=== PATIENT | female | born 1975 | race Caucasian/White ===

== ENCOUNTER 2024-02-10 10:52 | Outpatient (AMB) | payer OTHER, SELFPAY ==
[2024-02-10 11:25] VITALS: BP 138/82; PULSE 81; O2SAT 99; BMI 28.8
--- NOTE | 2024-02-10 11:25 | A.OFFPC_ITS ---
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: No Allergies No Known Allergies Allergy (Verified 02/10/24 11:26) Medication List - Last Reconciled 02/10/24 by Ely De La Fuente, SENIOR LINUX UNIX ADMINISTRATOR-BC cetirizine (Zyrtec) 10 mg PO DAILY PRN norethin-e.estradiol triphasic 0.5/0.75/1 mg- 35 mcg (Nortrel (28)) 1 tab PO DAILY omeprazole 20 mg PO DAILY Dental Screening Dental Screen Date: 02/10/24 Did you have a dental visit in the last 12 months?: Yes Did you have a dental problem in the last 6 months where you did not have access to dental care?: No Was dental information given to patient?: Patient has dentist HPI HPI Comments History of Present Illness Details History of Present Illness The patient is a 48-year-old female presenting today to [facility], no previous medical records available. She has chronic low back pain. She reports localized pain in the lower right quadrant of her back, which is not excruciating but occasionally necessitates the use of ibuprofen. 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 Physical therapy and stretching exercises have provided insufficient relief. An MRI is scheduled for further evaluation, managed by [facility]. The patient also has a history of gastrointestinal issues, leading to an en doscopy and colonoscopy which revealed polyps and necessitated ongoing antacid therapy. She reports adherence to Omeprazole for reflux symptoms. Imaging done at [facility] Johnny Santiago. Seasonal allergic rhinitis is managed with a generic form of Zyrtec and occasional nasal congestion symptoms which are managed with these medications. Additional history includes a past ACL and meniscus surgery on the right knee in 2014, with no reported complications since the surgery. During her , she experienced elevated blood pressure and anticipates the possibility of developing hypertension in the future. She is currently on oral contraceptive therapy with Nortel 777 to manage light menstrual bleeding. She inquired about routine health maintenance testing, noting that her last comprehensive blood work was conducted a significant time ago. She is due for Flu shot. Social History - Employed as a delinquent tax collection assistant, involv ing labor-intensive tasks such as lifting and twisting - Denies smoking - Engages in routine calorie counting an d weight management efforts - Does not consume a restricted diet and is attempting to lose weight - Receives medications via preferred pha rmacy, [facility] in [place] Review of Systems - Respiratory: Denies dyspnea or wheezin g - Cardiovascular: Denies palpitations or chest pain - Gastrointestinal: Reports mild seasona l allergic symptoms - Musculoskeletal: Reports ongoing low b ack pain Physical Exam - Vital Signs- Blood pressure 138/82 mmH g, Oxygenation saturation 99%, Pulse 81 bpm Awake, alert NAD PERRLA LS CTAB RRR Mood and affect appropriate Plan - Chronic Low Back Pain: Await results o f MRI scheduled for evaluation of back pain; continue current physical therapy and stretching regimen, avoid exacerbating activities, and use ibuprofen as needed for pain management. FF'd by GARFIELD. - Gastroesophageal Reflux Disease: Luz nue Omeprazole for symptom management. - Seasonal Allergic Rhinitis: Continue u se of generic Zyrtec as needed for symptom management. - Health Maintenance: Routine blood work including screening for cholesterol and thyroid function to be conducted, referral placed for OBGYN consultation for routine women's health care, ensure follow-up for colonoscopy as previously advised due to polyp history. - Potential Hypertension: Routine blood pressure monitoring advised, and lifestyle modifications recommended to reduce potential risk factors for hypertension. - Preventive Care: Administer influenza vaccine during the visit. Patient was informed and verbally consented to the use of an ambient scribe for clinic note documentation during this visit. Discussion Notes I discussed with the patient the management of her chronic low back pain, emphasizing the role of physical therapy and the upcoming MRI for further evaluation. We reviewed the importance of continuing current medication for her gastroesophageal reflux disease and allergy management. I placed an emphasis on blood pressure monitoring given her history of elevated values during and recommended lifestyle modifications as preventive measures. Furthermore, I referred her to an OBGYN for routine women's health care and advised her on obtaining her colonoscopy/EGD records. I also highlighted the benefits of receiving the influenza vaccine and informed her of the availability of routine lab tests for health maintenance. Patient Instructions - Attend scheduled MRI for back pain leonid rogers. - Continue physical therapy and stretchi ng exercises for back pain. - Continue Omeprazole and Zyrtec as pres cribed. - Monitor blood pressure at home, and sc hedule regular check-ups. - Receive flu vaccination during the jovana ointment. - Obtain colonoscopy and endoscopy recor ds from Johnny Monreal for continuity of care. - Utilize patient portal for appointment s and results. - Schedule OBGYN appointment for routine care with a female provider, as preferred. - Schedule routine blood work at the lab for health maintenance. - Report any significant changes in symp toms or new health concerns promptly. RTO Mar/Apr for CPE, sooner PRN Total time spent caring for the patient today was 30 minutes. This includes time spent before the visit reviewing the chart, time spent during the visit, and time spent after the visit on documentation [facility] Medical History History of induced hypertension Surgical History History of surgical removal of meniscus of knee S/P ACL surgery Social History Housing: House Patient Tobacco Use Status: Never used Tobacco e-Cigarette/Vaping Use: Never Used service: No Current occupational status: employed Cognitive needs: No Hearing needs: No Vision needs: No Questionnaire PHQ-9 Over the last 2 weeks, how often have you been bothered by any of the following problems? 1. Little interest or pleasure in doing things: not at all 2. Feeling down, depressed, or hopeless: not at all 3. Trouble falling or staying asleep, or sleeping too much: not at all 4. Feeling tired or having little energy: not at all 5. Poor appetite or overeating: not at all 6. Feeling bad about yourself - or that you are a failure or have let yourself or your family down: not at all 7. Trouble concentrating on things, such as reading the newspaper or watching television: not at all 8. Moving or speaking so slowly that other people could have noticed. Or the opposite - being so fidgety or restless that you have been moving around a lot more than usual: not at all 9. Thoughts that you would be better off or of hurting yourself in some way: not at all Total score: 0 Depression Screening Interpretation: Negative Depression Screening Done: Yes 26208 - PHQ-9 Billing: Yes Source: Developed by Drs. Robbin Salcedo, Cari Granados, Elpidio Jay and colleagues, with an educational efra from [employer]. Thrive Questionnaire Date Thrive assessed: 02/10/24 I am a: Patient What is your living situation today?: I have a steady place to live Within the past 12 months, did the food you bought not last and you didn't have the money to get more?: Never true Within the past 12 months, did you worry whether your food would run out before you got money to buy more?: Never true Do you have trouble paying for medicines?: No Do you have trouble getting transportation to medical appointments?: No Do you have trouble paying your heating and electricity bill?: No Do you have trouble taking care of your child, family member or friend?: No Do you have trouble with day-to-day activities such as bathing, preparing meals, shopping, managing finances, etc.?: No Are you currently unemployed and looking for a job?: No Are you interested in more education?: No Please select the resources that you would like help with: None Currently or been in a relationship where the following occur: No concerns reported THRIVE Score: 0 AUDIT C Alcohol Use Questionnaire (AUDIT-C) 1. How often do you have a drink containing alcohol?: Monthly or less 2. How many drinks containing alcohol do you have on a typical day when you are drinking?: 1 or 2 3. How often do you have six or more drinks on one occasion?: Never Total Score: 1 Score Reviewed/Action Taken: Yes TRICIA-7 AMB Questionnaire TRICIA-7 Date TRICIA - 7 assessed: 02/10/24 Feeling nervous, anxious, or on edge: 0 = Not at all Not being able to stop or control worryin = Not at all Worrying too much about different things: 0 = Not at all Trouble relaxin = Not at all Being so restless that it is hard to sit still: 0 = Not at all Becoming easily annoyed or irritable: 0 = Not at all Feeling afraid as if something awful might happen: 0 = Not at all Total TRICIA-7 score (0-4 normal; 5-9 mild; 10-14 moderate; 15-21 severe): 0 Source: Developed by Drs. Robbin Salcedo, Cari Granados, Elpidio Jay and colleagues, with an educational efra from [employer]. TRICIA-7 Assessment Billing TRICIA-7 Assessment Tool: TRICIA-7 Assessment 86050 Physical exam (Primary Care) Vital Signs: Last Vital Signs Pulse 81 02/10/24 11:25 BP 138/82 02/10/24 11:25 Pulse Ox 99 02/10/24 11:25 Oxygen Delivery Method Room Air 02/10/24 11:25 BMI result Body Mass Index 28.8 Tobacco/Smoking Status: Tobacco use Status Patient Tobacco Use Status Never used Tobacco 02/10/24 11:32 e-Cigarette/Vaping Use Never Used 02/10/24 11:32 PHQ-9: PHQ-9 Score PHQ-9: Total score 0 02/10/24 11:59 Depression Screening Interpretation: Negative Thrive Assessment: Date of Thrive Assessment Date Thrive assessed 02/10/24 02/10/24 11:32 Currently or been in a relationship where the following occur: No concerns reported Office Procedures Flu Questionnaire Does the patient have a severe egg allergy?: No Does the patient have severe life threatening allergies?: No Does the patient have a fever or illness today?: No Has the patient ever had Guillain-Effingham Syndrome?: No Has the patient ever had any past reaction to a flu shot?: No Immunizations Fluarix Triv [id number] (PF) 45 mcg (15 mcg x 3)/0.5 mL IM syringe Performing [facility] Performing Location: [facility] Family Medicine Administered by: Cathy Whittaker RN on 02/10/24 11:56 Dose Route Admin Location Dispensed Lot Number Expiration Date [facility] [employer] Consultant 0.5 mL IM Left Deltoid 0.5 mL [id number] 09/19/24 [id number] Hi[employer]version VIS Given Date VIS Provided VIS Publication Date 02/10/24 Single Vaccine 20 Eligibility Eligibility Date Funding Source Not [facility] Eligible 02/10/24 Private Coding Level of Care Code New Pt Level 3 (54614) Complex EM visit Add On G2211 Diagnoses Encounter to establish care Z76.89 Laboratory exam ordered as part of routine general medical examination Z00.00 GERD without esophagitis K21.9 Influenza vaccination administered at current visit Z23 Seasonal allergies J30.2 Low back pain radiating to left lower extremity M54.50; M79.605 Additional Codes TRICIA-7 Assessment Billing - TRICIA-7 Assessment Tool: TRICIA-7 Assessment 52704 ([id number]) PHQ-9 - 83734 - PHQ-9 Billing: Yes ([id number]) Assessment & Plan Assessment & Plan (1) Encounter to establish care: Code(s): Z76.89 - Persons encountering health services in other specified circumstances (2) Laboratory exam ordered as part of routine general medical examination: Code(s): Z00.00 - Encounter for general adult medical examination without abnormal findings Category: Medical (3) GERD without esophagitis: Code(s): K21.9 - Gastro-esophageal reflux disease without esophagitis Category: Medical (4) Influenza vaccination administered at current visit: Code(s): Z23 - Encounter for immunization Category: Medical (5) Seasonal allergies: Code(s): J30.2 - Other seasonal allergic rhinitis Category: Medical (6) Low back pain radiating to left lower extremity: Code(s): M54.50 - Low back pain, unspecified; M79.605 - Pain in left leg Category: Medical Plan . Orders: Orders Microalbumin, Random (w Creat) Today Z00.00 - Encounter for general adult m edical examination without abnormal findings Vitamin D 25-OH Total Today Z00.00 - Encounter for general adult medical examination without abnormal findings Influenza 4595-6900 Immunization Today Z23 - Encounter for immunization Comprehensive Met. Panel Today Z00.00 - Encounter for general adult medical examination without abnormal findings Hemoglobin A1c Today Z00.00 - Encounter for general adult medical examination without abnormal findings Lipid Panel Today Z00.00 - Encounter for general adult medical examination without abnormal findings TSH reflex Free T4 Today Z00.00 - Encounter for general adult medical examination without abnormal findings Referrals MARKETING BUDGET ANALYST Referral Z12.4 - Encounter for screening for malignant neoplasm of cervix Medications: New omeprazole 20 mg PO DAILY 90 caps 0RF Patient Instructions: Walk-In Care (Urgent Care): We Make it Easy Walk-in for urgent medical issues such as: ? Seasonal Allergies ? Insect Bites ? Cough ? Diarrhea ? Acute Asthma Attacks ? Back, Knee or Joint Pain ? Ear Infection ? Fever without a Rash ? Headaches ? Nausea ? [place], Rash or Skin Irritation ? Sore Throat ? Sports Physicals ? Vomiting Most insurances are accepted. Patients do not need to be part of the [facility] to seek care at the walk-in clinic. Locations [address] [place] [address] ? [phone] [facility] [place] [place] Walk-In Care in [place] provides services to ages 18 and over. Open Thursday-Thursday: 8 a.m. to 5 p.m. and Thursday: 9 a.m. to 3 p.m.* *Hours may vary due to staffing availability. To confirm Walk-In Care hours in [place], please call [phone]. [address] [place] [address] ? [phone] [facility] [place] [place] Walk-In Care in [place] provides services to ages 12 and over. Open Thursday-Thursday: 8 a.m. to 5 p.m. Hours may vary due to staffing availability. To confirm Walk-In Care hours in [place], please call [phone]. LABORATORY SERVICES: [facility] Lab ? Primary Location [address] [place] [address] Thursday through Thursday 6:00 AM ? 5:00 PM Thursday 7:00 AM ? 11:00 AM* [phone] The [facility] Lab is centrally located near the front entrance of the [facility] for easy outpatient access. Convenient parking is provided for outpatients. *Hours may vary due to staffing availability. To confirm Laboratory hours for any location, please call [phone]. Offsite Location For your convenience, we offer offsite laboratory draw stations at the following locations: [address] [place] [address] ? [facility] [address], [address] Thursday through Thursday 7:30 AM ? 1:00 PM* [phone] *Hours may vary due to staffing availability. To confirm Laboratory hours for any location, please call [phone]. Luis Fernando ? [address] Thursday through Thursday 6:00 AM ? 3:30 PM* Thursday 6:30 AM ? 3 PM* [phone] *Hours may vary due to staffing availability. To confirm Laboratory hours for any location, please call [phone]. [address] [facility] Thursday through Thursday 7:30 AM ? 4:00 PM* [phone] *Hours may vary due to staffing availability. To confirm Laboratory hours for any location, please call [phone]. [address] [facility] Thursday through 9:00 AM ? 4:00 PM* *Hours may vary due to staffing availability. To confirm Laboratory hours for any location, please call [phone]. Appointments are not necessary. Walk-ins are welcome. Like all the departments throughout the [facility], our Lab undergoes frequent reviews to ensure the quality and accuracy of test results, and our staff takes special pride in its status as a nationally accredited facility. Patient Portal: ONE PATIENT. ONE RECORD. BETTER CARE. The [facility] has a fully integrated, cutting- edge mobile electronic health information system that has revolutionized the way we care for our patients and manage our organization. This system improves communication and coordination enabling us to provide safe, higher-quality care, and an overall positive experience for staff and patients. Our first priority, as always, is to deliver the highest quality care possible. The system is running in the background supporting that priority. This portal is for all [facility] and [facility] services and practices. If you are experiencing any technical difficulties with enrolling or logging into the Patient Portal please complete the [facility] Patient Portal Technical Support Form. [facility] and [facility] now offers a new secure on-line interactive tool for patients to review their health information ? Patient Portal. This interactive web portal will enable patients and their families to take an active role in their care by providing easy, secure access to their health information via the internet. The Patient Portal provides patients with instant access to their health information, including laboratory results, medications, allergies, demographic information, visit history, and more. In addition to managing their own care, parents and health care proxies with authorized consent will appreciate the ability to access the records of those individuals for whom they provide care. Please note: if you wish to gain access (Proxy) to another patient?s portal, you will be required to come to the Medical Records Department in person at [facility]. Both the patient giving proxy access and the proxy will need to provide photo identification and complete the appropriate authorization. The Patient Portal also allows track their appointments online. The [facility] Patient Portal also saves patients time by allowing them to submit updates to their demographic and contact information prior to their visits. Portal email notifications will also alert patients to any new activity on their portal, such as test results and new appointments. In order to initially enroll in the [facility] Patient Portal, you will need to enter some required information including the following: ? your [facility] Medical Record number ? your personal home email address ? name ? date of Please note: In order to enroll in the [facility] Patient Portal, we need to have your email address on file in your electronic medical record. The email address needs to be specific for one person (yourself) in order for your Portal enrollment to be successful. You can update your email address in person with our Registration staff when you are registering for a hospital visit. Otherwise, you will need to come to the Health Information Management (Medical Records) Department at [facility]. We are open from Thursday ? Thursday from 7:30 a.m. ? 4:30 p.m. You will be required to present a photo id. Once you have successfully enrolled in the Patient Portal, you will receive a one-time user id and password for the Portal, sent to your email address. This will allow you to log into the Patient Portal within 99 hrs and reset your own logon id and password, and define personal security questions. Once your permanent login and password have been set, you can log into the [facility] Patient Portal at any time via the blue button above or from the Portal Logon button on any page of the [facility] website. [facility] and [facility] encourage all of our patients to enroll in Patient Portal as it presents a valuable opportunity for patients and their families to actively participate in their care and stay healthy Welcome to [facility]. We look forward to working with you.
== END 2024-02-10 11:55 | disposition home or self-care (01) ==
PROVIDERS: PCP Nurse Practitioner Family; Visit Provider Nurse Practitioner Family
DX: Z76.89 Persons encountering health services in other specified circumstances (principal); Z00.00 Encounter for general adult medical examination without abnormal findings; K21.9 Gastro-esophageal reflux disease without esophagitis; Z23 Encounter for immunization; J30.2 Other seasonal allergic rhinitis; M54.50 Low back pain, unspecified; M79.605 Pain in left leg

== ENCOUNTER → 2024-02-10 10:52 | Outpatient (BNVA) | payer OTHER, SELFPAY | PROVIDERS: PCP Nurse Practitioner Family; Visit Provider Nurse Practitioner Family | DX: Z76.89 Persons encountering health services in other specified circumstances (principal); K21.9 Gastro-esophageal reflux disease without esophagitis; J30.2 Other seasonal allergic rhinitis; M54.50 Low back pain, unspecified; M79.605 Pain in left leg; Z23 Encounter for immunization | CPT/HCPCS: 90471; 90656; 96127 ==

== ENCOUNTER 2024-02-10 14:36 | Outpatient (REF) | payer OTHER, SELFPAY ==
[2024-02-10 18:17] LABS: Alanine Aminotransferase 22 U/L (0-31); Albumin Level 4.2 g/dL (3.5-5.0); Alkaline Phosphatase 29 U/L (39-117); Anion Gap 15 (12-20); Aspartate Amino Transferase 23 U/L (5-31); Bilirubin Total 0.2 mg/dL (0.0-1.0); Blood Urea Nitrogen 11 mg/dL (9-16); Calcium 8.9 mg/dL (8.4-10.2); Carbon Dioxide 26 mmol/L (22-29); Chloride 102 mmol/L (96-108); Cholesterol 224 mg/dL (<200); Estimated Glomerular Filt Rate > 60; Glucose Random 94 mg/dL (60-115); HDL Cholesterol 62 mg/dL (>40); LDL Cholesterol Calculated 119 mg/dL (<100); Potassium 3.7 mmol/L (3.3-5.1); Sodium 139 mmol/L (135-145); Total Protein 7.2 g/dL (6.5-8.0); Triglycerides 217 mg/dL (<150)
[2024-02-10 18:18] LABS: Creatinine Urine 21.45 mg/dL; Microalbumin Urine < 5.0 mg/L
[2024-02-10 18:31] LABS: Vitamin D 25-OH Total 91.5 ng/mL (>30)
[2024-02-10 19:07] LABS: TSH reflex Free T4 1.56 uIU/mL (0.32-4.0)
[2024-02-11 05:19] LABS: Estimated Average Glucose 108 mg/dL; Hemoglobin A1C 112.8186 umol/L; Hemoglobin A1c % 5.4 % (<6.0); Total Hemoglobin (HGBA1C) 3163.6521 umol/L
== END 2024-02-10 14:37 | disposition home or self-care (01) ==
LOC: HO.WFDLDS 14:36
PROVIDERS: Visit Provider Nurse Practitioner Family
DX: Z00.00 Encounter for general adult medical examination without abnormal findings (principal); Z13.1 Encounter for screening for diabetes mellitus
CPT/HCPCS: 36415; 80053; 80061; 82306; 82570; 83036; 84443

== ENCOUNTER 2024-04-11 08:05 | Outpatient (AMB) | payer OTHER, SELFPAY ==
--- NOTE | 2024-04-11 08:07 | A.OFFPC_ITS ---
Vital Signs 04/11/24 08:10 Height 5 ft 2.5 in Weight 164 lb 6 oz BMI 29.6 BP 136/76 Blood Pressure Location Lt brachial Position Sitting Respiration 13 Pulse 74 Pulse Source Pulse Oximeter Pulse Oximetry (%) 97 Oxygen Delivery Method Room Air Intake Visit Reasons: MAR/APR 2024 CPE Intake Note: annual cpe Consultative Sales Associate Required: No Allergies No Known Allergies Allergy (Verified 04/11/24 08:28) Medication List - Last Reconciled 04/11/24 by KIAN Hernandez- cetirizine (Zyrtec) 10 mg PO DAILY PRN norethin-e.estradiol triphasic 0.5/0.75/1 mg- 35 mcg (Nortrel (28)) 1 tab PO DAILY omeprazole 20 mg PO DAILY Tobacco use date assessed: 04/11/24 Dental Screening Dental Screen Date: 04/11/24 Did you have a dental visit in the last 12 months?: No Did you have a dental problem in the last 6 months where you did not have access to dental care?: No Was dental information given to patient?: Patient has dentist HPI HPI Comments History of Present Illness Details 48 y/o F with chronic low back pain, TREE D, induced HTN, seasonal allergic rhinitis, hx of colon polyp, nerve sheath tumor L2-L3, family hx of rectal ca (sister age 48) past ACL and meniscus surgery on the right knee in 2014, s/p lasix surgery Health Maintenance Colon/EGD Flu Tdap admin today 04/11/2024 Specialists GARFIELD Santiago EQUAL OPPORTUNITY REPRESENTATIVE 02/2024 did not return call to schedule hand button splitter appt updated referral today [facility], Apr Dr Bjorn Gaston Derm annual skin checks Results Labs 01/2024 normal CMP, a1c, ^ chol TC 224, LDL 119, TG 217, HDL 62, normal TSH, Vit D, urine micro/alb Here today for CPE Optho - exam in the last 1 year. Wears 1 contact. 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 This tumor was identified following an MRI, conducted after physical therapy failed to alleviate her symptoms, which included persistent pain. The tumor has been characterized as benign from MRI findings, although a biopsy has not been performed. The patient has been referred to [facility] for surgical consultation, as local options were unable to manage the tumor. Additionally, the patient reports intermittent digital weakness affecting two fingers on her right hand (pinky and ring), which occurred two days ago and resolved spontaneously without intervention. There is no history of focal trauma, but the patient performs repetitive tasks at work, which could be contributing to the symptom. There is a history of gastroesophageal reflux disease managed with omeprazole. The patient has a history of constipation managed with daily MiraLAX and has previously undergone colonoscopy and endoscopy. Past treatment for IBS-C involved these diagnostic exams, but the precise imaging history is unclear. Family history includes a younger sister diagnosed with rectal cancer, currently undergoing treatment involving radiology and chemotherapy due to the tumor's size. Health Maintenance - Tetanus vaccination updated due to lac k of record over the past 10 years. - Referral planned for colonoscopy and e ndoscopy in line with a 5-year follow-up protocol, with special mention of family history of rectal cancer. - Agreement to schedule a EQUAL OPPORTUNITY REPRESENTATIVE appointmen t with a future start date to accommodate current medical priorities. - Patient reviewed for eye examination, last noted less than one year ago. - Annual skin examination with a dermato logist noted as June visit anticipated. - Negative screening for depression. - Discussion on alcohol intake; moderate consumption reported. - Elevated cholesterol discussed but not requiring immediate intervention. - Takes vitamins, including a multivitam in, calcium, and melatonin at night. Social History - Performs repetitive work tasks that po tentially impact hand and back health. - Limited alcohol consumption, primarily associated with social dining. Review of Systems - Neurological: Reports transient digita l weakness of the right hand, now resolved. - Musculoskeletal: Denies recent trauma; has a history of lumbar spine tumor. - Respiratory: Denies any current concer ns. - Gastrointestinal: Reports chronic cons tipation; takes daily MiraLAX. Plan - Proceed with referral to [facility] for neurosurgical consultation regarding the benign nerve sheath tumor. - Monitor digital weakness symptoms, par ticularly recurrent symptoms suggesting possible carpal tunnel syndrome or other repetitive motion injury. - Maintain current GERD management with omeprazole. - Continue daily MiraLAX for IBS-C sympt oms, with gastrointestinal referral for endoscopy and colonoscopy next year. - Monitor cholesterol levels and conside r lifestyle modifications as first-line intervention. - Continue annual dermatology follow-up for skin assessment. - Update vaccination records, tetanus sh ot administered today. Patient was informed and verbally consented to the use of an ambient scribe for clinic note documentation during this visit. Discussion Notes I discussed with the patient the importance of pursuing specialized consultation at [facility] for the management of her nerve sheath tumor. While it is reported as benign, surgical intervention is necessary due to specialty requirements. We reviewed the implications of repetitive hand movement at work and its potential relation to her transient digital symptoms. The connection between her chronic GERD and current medication regimen was revisited, assuring that omeprazole management is ongoing. Additionally, I e mphasized the importance of upcoming screenings in light of her family history of rectal cancer and our plans to ensure her colonoscopic surveillance remains up-to-date. I provided guidance on monitoring cholesterol levels and implemented a tetanus booster due to lapse in records. Future labs are planned to align with her next annual visit. Patient Instructions - Continue taking daily medications as p rescribed for GERD and IBS-C. - Monitor any recurrence of digital symp toms and report if persistent. - Follow the plan for surgical consultat ion at [facility]. - Follow up with EQUAL OPPORTUNITY REPRESENTATIVE referral as schedul ed. - Maintain a balanced diet and consider reducing saturated fats to address cholesterol. - Be vigilant for any new or unusual sym ptoms and report them promptly. - Schedule and attend dermatology and ey e appointments as discussed. - Update information with [facility] and other providers as appropriate using provided business cards. - Use the patient portal for any medicat ion refill requests or questions. - Return for follow-up visits as advised , or sooner if any health changes occur. RTO 1 YEAR CPE SOONER PRN PFSH Medical History History of induced hypertension Surgical History History of surgical removal of meniscus of knee S/P ACL surgery Social History Housing: House Patient Tobacco Use Status: Never used Tobacco e-Cigarette/Vaping Use: Never Used service: No Current occupational status: employed Cognitive needs: No Hearing needs: No Vision needs: No Questionnaire PHQ-9 Over the last 2 weeks, how often have you been bothered by any of the following problems? 1. Little interest or pleasure in doing things: not at all 2. Feeling down, depressed, or hopeless: not at all 3. Trouble falling or staying asleep, or sleeping too much: not at all 4. Feeling tired or having little energy: several days 5. Poor appetite or overeating: not at all 6. Feeling bad about yourself - or that you are a failure or have let yourself or your family down: not at all 7. Trouble concentrating on things, such as reading the newspaper or watching television: not at all 8. Moving or speaking so slowly that other people could have noticed. Or the opposite - being so fidgety or restless that you have been moving around a lot more than usual: not at all 9. Thoughts that you would be better off or of hurting yourself in some way: not at all Total score: 1 Depression Screening Interpretation: Negative Depression Screening Done: Yes 93448 - PHQ-9 Billing: Yes Source: Developed by Drs. Robbin Salcedo, Cari Granados, Elpidio Jay and colleagues, with an educational efra from [employer]. Thrive Questionnaire Date Thrive assessed: 04/11/24 I am a: Patient What is your living situation today?: I have a steady place to live Within the past 12 months, did the food you bought not last and you didn't have the money to get more?: Never true Within the past 12 months, did you worry whether your food would run out before you got money to buy more?: Never true Do you have trouble paying for medicines?: No Do you have trouble getting transportation to medical appointments?: No Do you have trouble paying your heating and electricity bill?: No Do you have trouble taking care of your child, family member or friend?: No Do you have trouble with day-to-day activities such as bathing, preparing meals, shopping, managing finances, etc.?: No Are you currently unemployed and looking for a job?: No Are you interested in more education?: No Please select the resources that you would like help with: None Currently or been in a relationship where the following occur: No concerns reported THRIVE Score: 0 AUDIT C Alcohol Use Questionnaire (AUDIT-C) 1. How often do you have a drink containing alcohol?: 2-4 times a month 2. How many drinks containing alcohol do you have on a typical day when you are drinking?: 1 or 2 3. How often do you have six or more drinks on one occasion?: Never Total Score: 2 Score Reviewed/Action Taken: Yes TRICIA-7 AMB Questionnaire TIRCIA-7 Date TRICIA - 7 assessed: 04/11/24 Feeling nervous, anxious, or on edge: 0 = Not at all Not being able to stop or control worryin = Not at all Worrying too much about different things: 1 = Several days Trouble relaxin = Not at all Being so restless that it is hard to sit still: 0 = Not at all Becoming easily annoyed or irritable: 1 = Several days Feeling afraid as if something awful might happen: 0 = Not at all Total TRICIA-7 score (0-4 normal; 5-9 mild; 10-14 moderate; 15-21 severe): 2 Source: Developed by Drs. Robbin Salcedo, Cari Granados, Elpidio Jay and colleagues, with an educational efra from [employer]. TRICIA-7 Assessment Billing TRICIA-7 Assessment Tool: TRICIA-7 Assessment 91165 Physical exam (Primary Care) Vital Signs: Last Vital Signs Pulse 74 04/11/24 08:10 Resp 13 04/11/24 08:10 BP 136/76 04/11/24 08:10 Pulse Ox 97 04/11/24 08:10 Oxygen Delivery Method Room Air 04/11/24 08:10 BMI result Body Mass Index 29.6 Tobacco/Smoking Status: Tobacco use Status Tobacco use date assessed 04/11/24 04/11/24 08:12 Patient Tobacco Use Status Never used Tobacco 04/11/24 08:07 e-Cigarette/Vaping Use Never Used 04/11/24 08:07 PHQ-9: PHQ-9 Score PHQ-9: Total score 1 04/11/24 08:24 Depression Screening Interpretation: Negative Thrive Assessment: Date of Thrive Assessment Date Thrive assessed 04/11/24 04/11/24 08:07 Currently or been in a relationship where the following occur: No concerns reported Const Other: General: Well developed, well nourished, in no acute distress. Appears stated age. Head: Normocephalic, atraumatic. Eyes: Pupils are equal, round and reactive to light and accommodation. Conjunctivae are clear. Vision grossly normal. Ears: TMs clear AU, EACS WNL Nose: Patent, without discharge. Mouth: There are no ulcers or lesions noted. No inflammation, no post nasal drip, no plaques nor exudates. Neck: Supple, no adenopathy or thyromegaly. Lungs: Clear to auscultation bilaterally. No rales, rhonchi or wheeze noted. Good air flow in all canela. Heart: Regular rate and rhythm. No murmurs, click, rubs or gallops are noted. Abdomen: Bowel sounds present in all quadrants. The abdomen is soft, nontender, with no masses or organomegaly noted. No hernias are noted. Musculoskeletal: Joints are nontender, without swelling, redness, or effusions. Range of motion is observed to be normal. Pulses: Peripheral pulses are equal and palpable bilaterally. Extremities: No clubbing, cyanosis nor edema is noted. Neurologic: Gait and station normal. Cranial Nerves 2-12 intact. Motor strength grossly symmetrical and intact. No sensory loss. Balance normal. Skin: No rashes, ulcers, or lesions noted. Turgor is good. Skin color is good. Hair and nails are without abnormalities. Psych: Normal eye contact, affect and mood appropriate, and normal interactions. Patient is alert and appropriate to context. Coding Level of Care Code Est Pt Prev Care 40-64y(89963) Diagnoses Encounter for general adult medical examination without abnormal findings Z00.00 Nerve sheath tumor D49.2 Borderline high cholesterol E78.9 Low back pain radiating to left lower extremity M54.50; M79.605 Seasonal allergies J30.2 GERD without esophagitis K21.9 Family history of rectal cancer Z80.0 Need for tetanus, diphtheria, and acellular pertussis (Tdap) vaccine in patient of adolescent age or older Z23 Laboratory exam ordered as part of routine general medical examination Z00.00 Hand paresthesia R20.2 Additional Codes TRICIA-7 Assessment Billing - TRICIA-7 Assessment Tool: TRICIA-7 Assessment 58461 ([id number]) PHQ-9 - 60080 - PHQ-9 Billing: Yes ([id number]) Assessment & Plan Assessment & Plan (1) Encounter for general adult medical examination without abnormal findings: Code(s): Z00.00 - Encounter for general adult medical examination without abnormal findings (2) Nerve sheath tumor: Comment: L SPINE, NOTED ON MRI DONE BY [facility] Code(s): D49.2 - Neoplasm of unspecified behavior of bone, soft tissue, and skin Category: Medical (3) Borderline high cholesterol: Code(s): E78.9 - Disorder of lipoprotein metabolism, unspecified Category: Medical (4) Low back pain radiating to left lower extremity: Code(s): M54.50 - Low back pain, unspecified; M79.605 - Pain in left leg Category: Medical (5) Seasonal allergies: Code(s): J30.2 - Other seasonal allergic rhinitis Category: Medical (6) GERD without esophagitis: Code(s): K21.9 - Gastro-esophageal reflux disease without esophagitis Category: Medical (7) Family history of rectal cancer: Comment: SISTER AGE 48 Code(s): Z80.0 - Family history of malignant neoplasm of digestive organs Category: Medical (8) Need for tetanus, diphtheria, and acellular pertussis (Tdap) vaccine in patient of adolescent age or older: Code(s): Z23 - Encounter for immunization (9) Laboratory exam ordered as part of routine general medical examination: Code(s): Z00.00 - Encounter for general adult medical examination without abnormal findings Category: Medical (10) Hand paresthesia: Comment: INTERMITTENT RIGHT PINKY AND INDEX FINGER, STARTED 03/2024 Code(s): R20.2 - Paresthesia of skin Category: Medical Plan . Orders: Orders Hemoglobin A1c 1 Year E78.9 - Disorder of lipoprotein metabolism, unspecified, Z00.00 - Encounter for general adult medical examination without abnormal findings Vitamin D 25-OH Total 1 Year E78.9 - Disorder of lipoprotein metabolism, unspecified, Z00.00 - Encounter for general adult medical examination without abnormal findings Comprehensive [place]. Panel Fast 1 Year E78.9 - Disorder of lipoprotein m etabolism, unspecified, Z00.00 - Encounter for general adult medical examination without abnormal findings Lipid Panel 1 Year E78.9 - Disorder of lipoprotein metabolism, unspecified, Z00.00 - Encounter for general adult medical examination without abnormal findings Microalbumin, Random (w Creat) 1 Year E78.9 - Disorder of lipoprotein metabolism, unspecified, Z00.00 - Encounter for general adult medical examination without abnormal findings TSH reflex Free T4 1 Year E78.9 - Disorder of lipoprotein metabolism, unspe cified, Z00.00 - Encounter for general adult medical examination without abnormal findings Referrals GUEST SERVICE HOST Referral Z12.4 - Encounter for screening for malignant neoplasm of cervix Gastroenterology Referral K21.9 - Gastro-esophageal reflux disease without esophagitis, Z12.11 - Encounter for screening for malignant neoplasm of colon, Z80.0 - Family history of malignant neoplasm of digestive organs Patient Instructions: Health screenings for women You should visit your health care provider from time to time, even if you are healthy. The purpose of these visits is to: Screen for medical issues Assess your risk for future medical problems Encourage a healthy lifestyle Update vaccinations and other preventive care services Help you get to know your provider in case of an illness Information Even if you feel fine, you should still see your provider for regular checkups. These visits can help you avoid problems in the future. For example, the only way to find out if you have high blood pressure is to have it checked regularly. High blood sugar and high cholesterol levels also may not have any symptoms in the early stages. A simple blood test can check for these conditions. There are specific times when you should see your provider or receive specific health screenings. The [place] Preventive Services Task Force publishes a list of recommended screenings. Below are screening guidelines for women ages 18 to 39. BLOOD PRESSURE SCREENING Your blood pressure should be checked at least once every 3 to 5 years if: Your blood pressure is in the normal range (top number less than 120 mm Hg and bottom number less than 80 mm Hg) You don't have risk factors for high blood pressure Ask your provider if you need your blood pressure checked more often if: The top number is 120 to 129 mm Hg or the bottom number is 70 to 79 mm Hg You have diabetes, heart disease, kidney problems, are overweight, or have certain other health conditions You have a first-degree relative with high blood pressure You are Black You had high blood pressure during a If the top number is 130 mm Hg or greater or the bottom number is 80 mm Hg or greater, this is considered stage 1 hypertension. Schedule an appointment with your provider to learn how you can reduce your blood pressure. Watch for blood pressure screenings in your area. Ask your provider if you can stop in to have your blood pressure checked. BREAST CANCER SCREENING Experts do not agree about the benefits of breast self-exams in finding breast cancer or saving lives. Talk to your provider about what is best for you. A screening mammogram is not recommended for most women under age 40. Your provider may discuss and recommend mammograms, MRI scans, or ultrasounds if you have an increased risk for breast cancer, such as: A mother or sister who had breast cancer at a young age (most often starting screening earlier than the age the close relative was diagnosed) You carry a high-risk genetic marker CERVICAL CANCER SCREENING Cervical cancer screening should start at age 21 years unless your provider advises otherwise. After the first test: Women ages 21 through 29 should have a Pap test every 3 years. Exoprts do not agree on whether HPV testing is recommended for this age group. Women ages 30 through 65 should be screened with either a Pap test every 3 years or the HPV test every 5 years or both tests every 5 years (called cotesting ). Women who have been treated for precancer (cervical dysplasia) should continue to have Pap tests for 20 years after treatment or until age 65, whichever is longer. If you have had your uterus and cervix removed (total hysterectomy), and you have not been diagnosed with cervical cancer or precancer (high grade cervical neoplasia), you do not need cervical cancer screening. CHOLESTEROL SCREENING Cholesterol screening should begin at: Age 45 for women with no known risk factors for coronary heart disease Age 20 for women with known risk factors for coronary heart disease Repeat cholesterol screening should take place: Every 5 years for women with normal cholesterol levels More often if changes occur in lifestyle (including weight gain and diet) More often if you have diabetes, heart disease, kidney problems, or certain o ther conditions DIABETES SCREENING You should be screened for diabetes starting at age 35 and then repeated every 3 years if you have no risk factors for diabetes. Screening may need to start earlier and be repeated more often if you have other risk factors for diabetes, such as: You have a first degree relative with diabetes. You are overweight or have obesity. You have high blood pressure, prediabetes, or a history of heart disease. Screening for diabetes should be done if you are planning to become and you are overweight and have other risk factors such as high blood pressure. DENTAL EXAM Go to the dentist once or twice every year for an exam and cleaning. Your dentist will evaluate if you need more frequent visits. EYE EXAM Have an eye exam every 5 to 10 years before age 40. If you have vision problems, have an eye exam every 2 years or more often if recommended by your provider. You should have an eye exam that includes an examination of your retina (back of your eye) at least every year if you have diabetes. IMMUNIZATIONS Commonly needed vaccines include: Flu shot: get one every year. COVID-19 vaccine: ask your provider what is best for you. Tetanus-diphtheria and acellular pertussis (Tdap) vaccine: have one at or after age 19 as one of your tetanus-diphtheria vaccines if you did not receive it as an adolescent. Tetanus-diphtheria: have a booster (or Tdap) every 10 years. Varicella vaccine: receive 2 doses if you never had chickenpox or the varicella vaccine. Hepatitis B vaccine: receive 2, 3, or 4 doses, depending on your exact circumstances. Measles, mumps, and rubella (MMR) vaccine: receive 1 to 2 doses if you are not already immune to MMR. Your provider can tell you if you are immune. Ask your provider about the human papillomavirus (HPV) vaccine if: You have not received the HPV vaccine in the past You have not completed the full vaccine series (you should catch up on this shot) Ask your provider if you should receive other immunizations if you have certain health problems that increase your risk for some diseases such as pneumonia. INFECTIOUS DISEASE SCREENING Women who are sexually active should be screened for chlamydia and gonorrhea up until age 25. Women 25 years and older should be screened for chlamydia and gonorrhea if at high risk. Screening for hepatitis C: All adults ages 18 to 79 should get a one-time test for hepatitis C. people should be screened at every . Screening for human immunodeficiency virus (HIV): All people ages 15 to 65 should get a one-time test for HIV. Depending on your lifestyle and medical history, you may also need to be screened for infections such as syphilis and HIV, as well as other infections. PHYSICAL EXAM All adults should visit their provider from time to time, even if they are healthy. The purpose of these visits is to: Screen for disease Assess your risk of future medical problems Encourage a healthy lifestyle Update your vaccinations and other preventive care services Maintain a relationship with a provider in case of an illness Your height, weight, and BMI should be checked at every exam. During your exam, your provider may ask you about: Depression and anxiety Diet and exercise Alcohol and tobacco use Safety issues, such as using seat belts, smoke detectors, and intimate partner violence Your medicines and risk for interactions SKIN SELF-EXAM Your provider may check your skin for signs of skin cancer, especially if you're at high risk, such as if you: Have had skin cancer before Have close relatives with skin cancer Have a weakened immune system OTHER SCREENING Talk with your provider about colon cancer screening if you have a strong family history of colon cancer or polyps, or if you have had inflammatory bowel disease or polyps yourself. Routine bone density screening of women under 40 is not recommended.
[2024-04-11 08:10] VITALS: BP 136/76; PULSE 74; RESP 13; O2SAT 97; BMI 29.6
== END 2024-04-11 08:46 | disposition home or self-care (01) ==
PROVIDERS: PCP Nurse Practitioner Family; Visit Provider Nurse Practitioner Family
DX: Z00.00 Encounter for general adult medical examination without abnormal findings (principal); D49.2 Neoplasm of unspecified behavior of bone, soft tissue, and skin; E78.9 Disorder of lipoprotein metabolism, unspecified; M54.50 Low back pain, unspecified; M79.605 Pain in left leg; J30.2 Other seasonal allergic rhinitis; K21.9 Gastro-esophageal reflux disease without esophagitis; Z80.0 Family history of malignant neoplasm of digestive organs; Z23 Encounter for immunization; R20.2 Paresthesia of skin

== ENCOUNTER → 2024-04-11 08:05 | Outpatient (BNVA) | payer OTHER, SELFPAY | PROVIDERS: PCP Nurse Practitioner Family; Visit Provider Nurse Practitioner Family | DX: Z00.00 Encounter for general adult medical examination without abnormal findings (principal); D49.2 Neoplasm of unspecified behavior of bone, soft tissue, and skin; E78.9 Disorder of lipoprotein metabolism, unspecified; M54.50 Low back pain, unspecified; M79.605 Pain in left leg; J30.2 Other seasonal allergic rhinitis; K21.9 Gastro-esophageal reflux disease without esophagitis; R20.2 Paresthesia of skin; Z80.0 Family history of malignant neoplasm of digestive organs | CPT/HCPCS: 96127 ==